=== PATIENT | male | born 1995 | race Caucasian/White ===

== ENCOUNTER 2018-03-05 05:05 | Emergency (ER) | payer OTHER ==
[~2018-03-05] VITALS: Ht 167.6 cm; Wt 56.2 kg
[2018-03-05 05:09] VITALS: Ht 167.6 cm; Wt 56.2 kg
[2018-03-05 05:55] VITALS: BP 123/82
== END 2018-03-05 05:55 | disposition home or self-care (01) ==
LOC: ED 05:05
DX: R06.02 Shortness of breath (principal); J45.909 Unspecified asthma, uncomplicated
CPT/HCPCS: J7512; J7613; J7644